=== PATIENT | male | born 1965 | race Caucasian/White ===

== ENCOUNTER 2018-04-06 01:42 | Emergency (ER) | payer OTHER ==
[2018-04-06 01:54] VITALS: BP 150/89; PULSE 82; TEMP 97.4; BMI 24.4
[2018-04-06] MEDS ORDERED: SODIUM CHLORIDE 1,000 ML IV STA (02:04)
[2018-04-06] MEDS ORDERED: PANTOPRAZOLE SODIUM 40 MG VIAL IVPUSH ONE (02:05)
[2018-04-06] MEDS ORDERED: FAMOTIDINE 20 MG/50 ML IVPB 20 MG/50 ML MG IVPB ONE ×2 (02:05→02:08)
[2018-04-06] MEDS ORDERED: PANTOPRAZOLE SODIUM 40 MG VIAL ONE (02:08)
--- NOTE | 2018-04-06 02:15 | PDOC ---
History of Present Illness - General Chief Complaint: Chest Pain Stated Complaint: PAIN Time Seen by Provider: 04/06/18 01:45 - History of Present Illness Initial Comments: 04/06/18 02:06 52m with pmh of DM2 presents with epigastric pain since 10:30pm tonight. Didn't try any medication for it. Checked his blood sugar at that time, was 66. Had some cookies. Denies sob, chest pain,. Past History - Past Medical History Allergies/Adverse Reactions: Allergies Allergy/AdvReac Type Severity Reaction Status Date / Time No Known Allergies Allergy Verified 04/06/18 01:51 Home Medications: Ambulatory Orders Pantoprazole Sodium [Protonix] 40 mg PO TID #30 tablet. 04/06/18 - Suicide/Smoking/Psychosocial Hx Smoking History: Never smoked Have you smoked in the past 12 months: No Information on smoking cessation initiated: No Hx Alcohol Use: No Drug/Substance Use Hx: No Review of Systems - Review of Systems Able to Perform ROS?: Yes Is the patient limited Hungarian proficient: No Constitutional: No: Symptoms Reported HEENTM: No: Symptoms Reported Respiratory: No: Symptoms reported Cardiac (ROS): Yes: See HPI ABD/GI: Yes: Symptoms Reported, See HPI : No: Symptoms Reported Musculoskeletal: No: Symptoms Reported Integumentary: No: Symptoms Reported Neurological: No: Symptoms reported *Physical Exam - Vital Signs Last Vital Signs Temp Pulse Resp BP Pulse Ox 97.4 F L 82 20 150/89 98 04/06/18 01:51 04/06/18 01:51 04/06/18 01:51 04/06/18 01:51 04/06/18 01:51 - Physical Exam General Appearance: Yes: Nourished, Appropriately Dressed, Apparent Distress HEENT: positive: EOMI, CHRISTINE, Normal ENT Inspection Respiratory/Chest: positive: Lungs Clear, Normal Breath Sounds. negative: Chest Tender, Respiratory Distress Cardiovascular: positive: Regular Rhythm, Regular Rate, S1, S2 Gastrointestinal/Abdominal: positive: Normal Bowel Sounds, Soft, Protuberent. negative: Tender Rectal Exam: positive: normal exam Extremity: positive: Normal Capillary Refill, Normal Inspection, Normal Range of Motion Integumentary: positive: Normal Color, Dry, Warm Neurologic: positive: Fully Oriented, Alert, Normal Mood/Affect, Normal Response , Motor Strength 5/5 ED Treatment Course - LABORATORY CBC & Chemistry Diagram: 04/06/18 02:00 04/06/18 02:00 - ADDITIONAL ORDERS Additional order review: Laboratory Results 04/06/18 02:00 Sodium 138 Potassium 3.9 Chloride 102 Carbon Dioxide 28 Anion Gap 8 BUN 23 H Creatinine 0.8 Creat Clearance w eGFR > 60 Random Glucose 113 H Calcium 8.3 L Total Bilirubin 0.3 AST 21 ALT 27 Alkaline Phosphatase 60 Troponin I < 0.02 Total Protein 6.7 Albumin 3.1 L 04/06/18 02:00 RBC 4.46 MCV 92.0 MCHC 32.9 RDW 13.1 MPV 8.8 Neutrophils % 63.7 Lymphocytes % 21.7 Monocytes % 9.0 Eosinophils % 5.1 H Basophils % 0.5 - RADIOLOGY Radiology Studies Ordered: Category Date Time Status CHEST PA & LAT [RAD] Stat Radiology 04/06/18 02:05 Taken - Medications Given in the ED: ED Medications Discontinued Medications Generic Name Dose Route Start Last Admin Trade Name Freq PRN Reason Stop Dose Admin Famotidine/Sodium Chloride 20 mg in 50 mls @ 100 mls/hr 04/06/18 02:05 02:24 Pepcid 20 Mg Premixed Ivpb - IVPB 04/06/18 02:34 100 mls/hr ONCE ONE Administration Sodium Chloride 1,000 mls @ 1,000 mls/hr 04/06/18 02:04 04/06/18 02:23 Normal Saline - IV 04/06/18 03:03 1,000 mls/hr ASDIR STA Administration Pantoprazole Sodium 40 mg 04/06/18 02:05 04/06/18 02:24 Protonix Iv IVPUSH 04/06/18 02:06 40 mg ONCE ONE Administration Medical Decision Making - Medical Decision Making 04/06/18 02:23 52m with epigastric pain. EKG: Normal sinus rhythm, normal EKG Will reassess after trops and labs. ICv fluids, protonix and pepcid 04/06/18 03:30 ok to dc *DC/Admit/Observation/Transfer Diagnosis at time of Disposition: Dyspepsia - Discharge Dispostion Disposition: HOME Condition at time of disposition: Improved Decision to Admit order: No - Referrals Referrals: Alex Young [Primary Care Provider] - David Smith MD [Staff Physician] - - Patient Instructions Printed Discharge Instructions: DI for Atypical Chest Pain, DI for Dyspepsia Additional Instructions: Follow up with your Reverse Unit Operator and truck jumper Dr. Smith. Come back to the ED for any new, worsening or concerning symptom. - Post Discharge Activity
[2018-04-06 02:24] LABS: BASO % 0.5 % (0-2.0); EOS % 5.1 % (0-4.5); HEMATOCRIT 41.1 % (35.4-49); HEMOGLOBIN 13.5 GM/dL (11.7-16.9); LYMPH % 21.7 % (8-40); MCH 30.2 pg (25.7-33.7); MCHC 32.9 g/dl (32.0-35.9); MEAN PLT VOLUME 8.8 fl (7.5-11.1); NEUT % 63.7 % (42.8-82.8); PLATELET COUNT 231 K/MM3 (134-434); RBC 4.46 M/mm3 (4.00-5.60); RDW 13.1 % (11.9-15.9); WHITE BLOOD COUNT 8.8 K/mm3 (4.0-10.0)
--- NOTE | 2018-04-06 02:30 | PDOC ---
Attending Attestation - HPI HPI: 04/06/18 02:45 The patient is a 52 year old male, with a significant past medical history of Type II DM, who presents to the emergency department with, 4 hours of epigastric pain. He denies taking any medications for his pain. He reports testing his blood sugar and obtaining a reading of 66 thus, he ate a cookie. He denies any history of GERD. He denies any recent fevers, chills, headache or dizziness. He denies any recent nausea, vomit, diarrhea or constipation. He denies any recent shortness of breath. He denies any recent dysuria, frequency, urgency or hematuria. Allergies: NKA Past surgical history: None reported. Social History: Nonsmoker. Denies EtOH use and recreational drug use. Primary Care Physician: Dr. Alex Young <Meron Roblero - Last Filed: 04/06/18 02:45> - Resident Resident Name: Mani Kuo - ED Attending Attestation I have performed the following: I have examined & evaluated the patient, The case was reviewed & discussed with the resident, I agree w/resident's findings & plan, Exceptions are as noted - Physicial Exam PE: 04/09/18 20:05 physical exam*Physical Exam General Appearance: Yes: Appropriately Dressed. No: Apparent Distress, Intoxicated HEENT: positive: EOMI, CHRISTINE, Normal ENT Inspection, Normal Voice, TMs Normal, Pharynx Normal. negative: Pale Conjunctivae, Photophobia, Scleral Icterus (R), Scleral Icterus (L) Neck: positive: Trachea midline, Normal Thyroid, Supple. negative: Tender, Rigid, Carotid bruit, Stridor, Lymphadenopathy (R), Lymphadenopathy (L), Thyromegaly Respiratory/Chest: positive: Lungs Clear, Normal Breath Sounds. negative: Chest Tender, Respiratory Distress, Accessory Muscle Use, Labored Respiration, RES, Crackles, Rales, Rhonchi, Stridor, Wheezing, Dullness Cardiovascular: positive: Regular Rhythm, Regular Rate, S1, S2. negative: Edema , JVD, Murmur, Bradycardia, Tachycardia Vascular Pulses: Dorsalis-Pedis (R): 2+, Doralis-Pedis (L): 2+ Gastrointestinal/Abdominal: positive: Normal Bowel Sounds, Flat, Soft. negative : Tender, Organomegaly, Pulsatile Mass, Increased Bowel Sounds, Decreased BS, Distended, Guarding, Rebound, Hernia, Hepatomegaly, Spleenomegaly Lymphatic: negative: Adenopathy, Tenderness Musculoskeletal: positive: Normal Inspection. negative: CVA Tenderness, Decreased Range of Motion Extremity: positive: Normal Capillary Refill, Normal Inspection, Normal Range of Motion, Pelvis Stable. negative: Tender, Pedal Edema, Swelling, Erythema Integumentary: positive: Normal Color, Dry, Warm. negative: Cyanotic, Erythema , Jaundice, Rash Neurologic: positive: side splitter II-XII NML intact, Fully Oriented, Alert, Normal Mood/ Affect, Motor Strength 5/5. negative: EOM Palsy, Facial Droop, Sensory Deficit - Medical Decision Making 04/09/18 20:05 Pt treated and released <Ivan Ramos - Last Filed: 04/09/18 20:06> Attestations - Attestations 04/06/18 02:45 Documentation prepared by Meron Roblero, acting as director biomedical engineering for Ivan Ramos DO. <Meron Roblero - Last Filed: 04/06/18 02:45>
[2018-04-06 02:58] LABS: ALBUMIN 3.1 g/dl (3.4-5.0); ANION GAP 8 (8-16); BILIRUBIN,TOTAL 0.3 mg/dL (0.2-1.0); BLOOD UREA NITROGEN 23 mg/dL (7-18); CALCIUM 8.3 mg/dL (8.5-10.1); CHLORIDE 102 mmol/L (98-107); CO2 28 mmol/L (21-32); CREATININE 0.8 mg/dL (0.7-1.3); GLUCOSE,RANDOM 113 mg/dL (74-106); SGPT/ALT 27 U/L (12-78); SODIUM 138 mmol/L (136-145); TOT PROT 6.7 g/dl (6.4-8.2)
[2018-04-06 03:00] LABS: ALK PHOS 60 U/L (45-117)
[2018-04-06 03:06] LABS: POTASSIUM 3.9 mmol/L (3.5-5.1); SGOT/AST 21 U/L (15-37)
--- NOTE | 2018-04-08 10:15 | EKG ---
Test Reason : Blood Pressure : / mmHG Vent. Rate : 084 BPM Atrial Rate : 084 BPM P-R Int : 160 ms QRS Dur : 082 ms QT Int : 396 ms P-R-T Axes : 050 023 052 degrees QTc Int : 467 ms NORMAL SINUS RHYTHM NORMAL ECG WHEN COMPARED WITH ECG OF 15-NOV-2004 18:01, NO SIGNIFICANT CHANGE WAS FOUND Confirmed by FOREIGN STOREY MD ([id number]) on 04/08/2018 10:15:10 AM Referred By: Confirmed By:FOREIGN STOREY MD
== END 2018-04-06 04:30 | disposition home or self-care (01) ==
LOC: JER 01:42
PROC: 3E033GC Introduction of Other Therapeutic Substance into Peripheral Vein, Percutaneous Approach (ICD-10-PCS; principal; 2018-04-06)
DX: R10.13 Epigastric pain (principal); E11.9 Type 2 diabetes mellitus without complications; Z79.84 Long term (current) use of oral hypoglycemic drugs
CPT/HCPCS: 36415; 71046-TC-FY; 80053; 84484; 85025; 93005; 93010; 99282-25; J7030